=== PATIENT | male | born 2000 | race Caucasian/White ===

== ENCOUNTER 2024-04-02 20:46 | Emergency (ER) | payer OTHER, SELFPAY ==
[2024-04-02 20:48] VITALS: BP 125/72; BMI 25.6
[2024-04-03 00:29] LABS: Amphetamines Negative (Negative); Barbiturates Negative (Negative); Benzodiazepines Negative (Negative); Buprenorphine Negative (Negative); Cocaine Negative (Negative); Marijuana Negative (Negative); Methadone Negative (Negative); Methamphetamines Negative (Negative); Opiates Negative (Negative); Phencyclidine Negative (Negative); Tricyclic Antidepressants Negative (Negative)
[2024-04-03 00:33] LABS: ALT (SGPT) 25 U/L (0-50); AST (SGOT) 30 U/L (17-59); Albumin 4.6 g/dl (3.5-5.0); Alkaline Phosphatase 82 U/L (38-126); Blood Urea Nitrogen 22 mg/dl (9-20); Calcium 9.4 mg/dl (8.4-10.2); Carbon Dioxide 27 mmol/L (22-30); Chloride 105 mmol/L (98-107); Estimated Creatinine Clearance 121 ml/min; Glucose 85 mg/dl (70-99); Potassium 3.8 mmol/L (3.5-5.1); Sodium 142 mmol/L (135-145); Total Bilirubin 0.6 mg/dl (0.2-1.3); Total Protein 6.9 g/dl (6.3-8.2); eGFR > 60.00
[2024-04-03 00:43] LABS: Hematocrit 37.7 % (39.0-52.0); Hemoglobin 14.1 g/dL (13.0-18.0); Mean Corp Hgb Conc. 37.4 g/dL (33.0-37.0); Mean Corpuscular Hgb 32.3 pg (27.0-31.0); Mean Corpuscular Volume 86.3 fL (80.0-94.0); Mean Platelet Volume 10.3 fL (7.4-10.4); Platelet Count 174 10^3/uL (130-400); Red Blood Cell Count 4.37 10^6/uL (4.70-6.10); Red Cell Dist. Width 11.5 % (11.5-14.5); White Blood Cell Count 7.3 10^3/uL (4.8-10.8)
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
--- NOTE | 2024-04-03 07:30 | EDRN ---
Patient is calm and cooperative at present time. Patient with c/o sore throat. Updated on plan of care.
[2024-04-03 11:23] LABS: COVID-19 Antigen Negative (Negative)
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
[2024-04-03 11:54] VITALS: BP 123/66
--- NOTE | 2024-04-03 18:46 | EDRN ---
Discharge instructions reviewed with patient's parents. Verbalized understanding. Ambulated with steady gait to the lobby.
== END 2024-04-03 18:45 | disposition home or self-care (01) ==
LOC: EMR 20:46
PROVIDERS: Emergency Medicine; CONSULT PHYSICIAN Psychiatry & Neurology Psychiatry; EMERGENCY PHYSICIAN Student in an Organized Health Care Education/Training Program
DX: F91.1 Conduct disorder, childhood-onset type (principal); F70 Mild intellectual disabilities; F84.0 Autistic disorder
CPT/HCPCS: 99283; 80053; 80306; 85027; 87811

== ENCOUNTER 2024-06-30 12:17 | Emergency (ER) | payer OTHER, SELFPAY ==
[2024-06-30 12:20] VITALS: BP 135/86
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
[2024-06-30] MEDS: RISPERDAL 0.5 MG PO (16:26)
[2024-06-30 16:28] VITALS: BP 121/64
[2024-06-30 16:48] LABS: % Basophils 0.4 % (0-2); % Eosinophils 1.2 % (0-6); % Immature Granulocytes 1.3 % (0-0.5); % Lymphocytes 21.9 % (20.5-51.1); % Monocytes 8.5 % (1.7-9.3); % Neutrophils 66.7 % (42.2-75.2); Absolute Eosinophils 0.1 10^3/uL (0-0.7); Absolute Immature Granulocytes 0.1 10^3/uL (0-0.05); Absolute Lymphocytes 1.7 10^3/uL (1.2-3.4); Absolute Monocytes 0.7 10^3/uL (0.1-0.6); Absolute Neutrophils 5.1 10^3/uL (1.4-6.5); Hematocrit 39.4 % (39.0-52.0); Hemoglobin 14.5 g/dL (13.0-18.0); Mean Corp Hgb Conc. 36.8 g/dL (33.0-37.0); Mean Corpuscular Hgb 31.3 pg (27.0-31.0); Mean Corpuscular Volume 84.9 fL (80.0-94.0); Mean Platelet Volume 9.7 fL (7.4-10.4); Nucleated Red Blood Cells % 0 % (-); Platelet Count 161 10^3/uL (130-400); Red Blood Cell Count 4.64 10^6/uL (4.70-6.10); Red Cell Dist. Width 11.9 % (11.5-14.5); White Blood Cell Count 7.7 10^3/uL (4.8-10.8)
--- NOTE | 2024-06-30 16:52 | CM ---
Addendum entered by Saundra Zimmerman RN 06/30/24 18:05:
CM met with patient's parent's and terrazzo worker helper. CM advised parents that residential placement will take several weeks. CM encouraged parents to work with patient's chief service dispatcher to work on residential options. Mother left message for
patient's chief service dispatcher. painting trades worker is working on inpatient psychiatric treatment.
Original Note:
CM was consulted to discuss terminal manager placement for patient. CM spoke with patient's father and he stated that he wanted to speak with me. Father refused to discuss what he wanted to discuss with me.
[2024-06-30 17:24] LABS: ALT (SGPT) 159 U/L (0-50); AST (SGOT) 78 U/L (17-59); Albumin 4.7 g/dl (3.5-5.0); Alkaline Phosphatase 57 U/L (38-126); Blood Urea Nitrogen 19 mg/dl (9-20); Calcium 9.5 mg/dl (8.4-10.2); Carbon Dioxide 27 mmol/L (22-30); Chloride 105 mmol/L (98-107); Glucose 99 mg/dl (70-99); Potassium 3.8 mmol/L (3.5-5.1); Sodium 144 mmol/L (135-145); Total Bilirubin 0.8 mg/dl (0.2-1.3); Total Protein 7.4 g/dl (6.3-8.2); eGFR > 60.00
[2024-06-30 17:34] LABS: Alcohol None Detected
[2024-06-30 17:53] LABS: Amphetamines Negative (Negative); Barbiturates Negative (Negative); Benzodiazepines Negative (Negative); Buprenorphine Negative (Negative); Cocaine Negative (Negative); Marijuana Negative (Negative); Methadone Negative (Negative); Methamphetamines Negative (Negative); Opiates Negative (Negative); Phencyclidine Negative (Negative); Tricyclic Antidepressants Negative (Negative)
[2024-06-30 19:53] VITALS: BP 130/79
[2024-06-30] MEDS: GEODON 20 MG PO (22:47)
[2024-07-01 00:34] VITALS: BP 129/68
[2024-07-01 05:58] VITALS: BP 113/65
[2024-07-01] MEDS: GEODON 20 MG PO ×2 (08:41→20:13)
--- NOTE | 2024-07-01 09:59 | ED.CRISIS ---
ED Crisis Note
ED Crisis Note
Subjective:
23-year-old male with history of autism presents after aggressive behavior. Stable with no complaints. Father concerned about him getting his medications.
Objective:
Awake and alert. Sleeping initially but now awake. No respiratory distress
Assessment/Plan:
Continue current medications. Hold risperidone. Appreciate crisis input
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
[2024-07-01] MEDS: NON-FORMULARY ITEM 1 MG PO (12:15)
[2024-07-01 16:56] VITALS: BP 139/74
[2024-07-02] MEDS: NON-FORMULARY ITEM 1 MG PO (09:39)
[2024-07-02] MEDS: GEODON 20 MG PO ×2 (09:39→19:42)
--- NOTE | 2024-07-02 13:57 | W.PN.UPDATE ---
Update Note
Progress Note Update
Patient is doing reasonably well, today was being visited by his therapist. Denies any significant problems, appetite stable, denies insomnia. He has not been aggressive or agitated.
He is eating with the Geodon.
Problem is that so far he has not been accepted by any inpatient facility. Parents still feel they cannot handle him home due to his aggression.
I would continue current meds and Crisis is actively trying to find appropriate placement.
[2024-07-02 18:37] VITALS: BP 135/72
[2024-07-03 09:35] VITALS: BP 125/67
[2024-07-03] MEDS: GEODON 20 MG PO (09:45)
[2024-07-03] MEDS: NON-FORMULARY ITEM 1 MG PO (09:45)
== END 2024-07-03 13:04 ==
LOC: EMR 12:17
PROVIDERS: CONSULT PHYSICIAN Psychiatry & Neurology Psychiatry; EMERGENCY PHYSICIAN Emergency Medicine
DX: F84.0 Autistic disorder (principal); R45.6 Violent behavior
CPT/HCPCS: 99283; 80053; 80306; 82077; 85025; 93005

== ENCOUNTER 2024-10-13 06:46 | Emergency (ER) | payer OTHER, SELFPAY ==
[2024-10-13 06:52] VITALS: BP 140/80
--- NOTE | 2024-10-13 07:42 | EDRN ---
I asked Rusty if he had any thoughts about self harm-he denies this
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
[2024-10-13] MEDS: MOTRIN 400 MG PO (08:58)
[2024-10-13 09:24] VITALS: BP 142/82
[2024-10-13 09:44] LABS: % Basophils 0.4 % (0-2); % Eosinophils 1.1 % (0-6); % Immature Granulocytes 0.5 % (0-0.5); % Lymphocytes 6.7 % (20.5-51.1); % Monocytes 4.7 % (1.7-9.3); % Neutrophils 86.6 % (42.2-75.2); Absolute Eosinophils 0.1 10^3/uL (0-0.7); Absolute Immature Granulocytes 0.1 10^3/uL (0-0.05); Absolute Lymphocytes 0.7 10^3/uL (1.2-3.4); Absolute Monocytes 0.5 10^3/uL (0.1-0.6); Absolute Neutrophils 9.1 10^3/uL (1.4-6.5); Hematocrit 42.8 % (39.0-52.0); Hemoglobin 15.4 g/dL (13.0-18.0); Mean Corpuscular Hgb 30.4 pg (27.0-31.0); Mean Corpuscular Volume 84.4 fL (80.0-94.0); Mean Platelet Volume 9.6 fL (7.4-10.4); Nucleated Red Blood Cells % 0 % (-); Platelet Count 175 10^3/uL (130-400); Red Blood Cell Count 5.07 10^6/uL (4.70-6.10); Red Cell Dist. Width 11.8 % (11.5-14.5); White Blood Cell Count 10.5 10^3/uL (4.8-10.8)
[2024-10-13 10:02] LABS: Blood Urea Nitrogen 13 mg/dl (9-20); Calcium 9.6 mg/dl (8.4-10.2); Carbon Dioxide 25 mmol/L (22-30); Chloride 104 mmol/L (98-107); Glucose 132 mg/dl (70-99); Lithium 0.7 mmol/L (0.6-1.2); Potassium 4.1 mmol/L (3.5-5.1); Sodium 138 mmol/L (135-145); eGFR > 60.00
== END 2024-10-13 12:34 | disposition home or self-care (01) ==
LOC: EMR 06:46
PROVIDERS: Physician Assistant; EMERGENCY PHYSICIAN Emergency Medicine
DX: J02.9 Acute pharyngitis, unspecified (principal); F84.0 Autistic disorder
CPT/HCPCS: 99283; 80048; 80178; 85025; 87070; 87880

== ENCOUNTER 2025-01-26 15:03 | Emergency (ER) | payer OTHER, SELFPAY ==
[2025-01-26 15:24] VITALS: BP 134/86
--- NOTE | 2025-01-26 16:21 | ED.GENMED ---
History of Present Illness
General
Chief Complaint: Crisis Evaluation
Time Seen by Provider: 01/26/25 16:21
History of Present Illness
History of Present Illness:
TIME OF INITIAL EVALUATION
- 4:30 PM
REVIEW OF OLD RECORDS
- The patient has history of autism. The patient was seen here this past June and at that time ultimately was transferred to [place].
CHIEF COMPLAINT(S)
Admission to the emergency department via ambulance; the patient is unsure of the reason.
HISTORY OF PRESENT ILLNESS
The patient is a 24-year-old male who arrived at the emergency department transported by ambulance. The patient is unsure of who called the ambulance, stating, 'The ambulance showed up.' He denies current feelings of upset or fear and reports
feeling 'okay.' He does not recall the reason for being in the emergency department and does not report any discomfort or distress at the time of evaluation.
SOCIAL HISTORY
The patient denies any use of drugs or alcohol. He reports living with his parents.
PHYSICAL EXAM
- General: Overall appearance is consistent with autism
- HEENT: Moist oral mucosa
- Cardiovascular: No murmurs, normal heart rate, regular rhythm, No chest wall tenderness
- Pulmonary: No respiratory distress, breath sounds are clear and equal
- Abdomen: Soft with no peritoneal signs, no tenderness
- Neurologic: Excellent strength all extremities, no coordination deficits
- Psychiatric: The patient is occasionally rocking back and forth on the stretcher but does not appear to be in any significant distress, his insight and judgment are somewhat impaired
- Extremities: Nontender, no edema, moves all extremities equally
- Skin: No rash, no lesions
DIFFERENTIAL DIAGNOSIS
The Differential Diagnosis includes, in no particular order and is not limited to:
1. Anxiety or stress-related episode
2. Acute confusion or disorientation
3. Possible postictal state following seizure
4. Syncope or fainting episode
5. Metabolic disturbances (e.g., hypoglycemia)
6. Neurological event (e.g., transient ischemic attack)
7. Substance intoxication or withdrawal (self-reported denial)
8. Psychiatric disorder
9. Infection leading to altered mental status
10. Trauma or head injury (unknown history)
RADIOLOGY
- Indicated
EKG
- Not indicated
LABS
- Recent labs unremarkable therefore no labs ordered today
UPDATE
- At about 4:30 PM, I discussed case with crisis and they will evaluate him. I did review old records and the patient had an unremarkable CBC and chemistries this past September.
SUMMARY OF ENCOUNTER
The patient, a 24-year-old male, was brought to the emergency department following an incident at home where his behavior became aggressive. According to the accompanying libertarian, the patient has a history of behavioral disturbances beginning at age
22, with increasing episodes of aggression. The accompanying libertarian reported that the patient was previously treated with various psychiatric medications including lithium and risperidone, but continues to exhibit aggressive behavior. The current
medications include trifluoperazine and lithium. The patient�s aggressive tendencies have escalated, and the concern is that he may pose a risk to himself or others. Given the ongoing aggression and treatment-resistant behavior, consideration for
psychiatric inpatient admission was discussed.
ASSESSMENT
The patient exhibits aggressive and potentially harmful behavior that may be a result of underlying psychiatric conditions. A history of multiple changes in psychiatric medications suggests a complex mental health profile requiring specialized
inpatient care.
PLAN
- Consider psychiatric evaluation for potential inpatient admission to manage acute behavioral disturbance.
- Review current psychiatric medication regimen and evaluate efficacy.
- Involve social insurance adviser and mental health professionals for further assessment and planning.
MEDICATION RECONCILIATION
The patient is currently taking trifluoperazine and lithium. Previous medications included risperidone.
MEDICAL DECISION MAKING
-Complexity of Problems Addressed: Chronic conditions affecting care, including psychiatric disorder, and autism spectrum disorder. Differential Diagnosis includes anxiety or stress-related episode, acute confusion, possible postictal state
following seizure, syncope, metabolic disturbances, neurological event, substance intoxication or withdrawal, infection leading to altered mental status, trauma or head injury.
-Data:
Category 1: No specific lab tests ordered. Review of prior psychiatric history and medication adjustments.
Category 3: Discussion of management and consideration for inpatient psychiatric care due to ongoing aggression and complex behavioral issues.
-Risk: Consideration of Admission/Observation: Escalation of care including admission/observation was considered given the complexity and risk of the patients presenting complaint, exam findings, and underlying psychiatric condition. Ultimately, the
decision leans toward inpatient admission for comprehensive care.
DIAGNOSIS
1. 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
2. Autism spectrum disorder - ICD-10 F84.0
7 PM, had long discussion with father. Father adamant that the patient cannot safely be returned home.
I spoke to pharmacist as we do not have guanfacine 1 mg extended release. They are placing an order for him to get it each morning in case he is unable to be placed tonight at [facility] or another facility.
I have also ordered the usual medications that the patient is usually on. Father cell phone number is [phone]. Mother cell phone number is [phone].
Phy Exam
Physical Exam
Physical Exam:
See HPI
Course
Orders/Labs/Results
Orders:
Orders
01/26/25 Dinner
Regular
At Your Request: Full Participation
Does patient need a safe tray?: Yes
01/26/25 16:27
Crisis Consult Urgent
Reason for Consult: behavior
01/26/25 20:00
Trifluoperazine [Stelazine] 1 mg PO BID
Trifluoperazine [Stelazine] 5 mg PO BID
01/26/25 22:00
[place] Carbonate [Eskalith] 600 mg PO HS
01/27/25 08:00
Non-Formulary Item See Dose Instructions PO DAILY
Vital Signs
Initial and Last Documented VS:
Initial Vital Signs
Temp Pulse Resp BP Pulse Ox
36.7 C 102 18 134/86 98
01/26/25 15:24 01/26/25 15:24 01/26/25 15:24 01/26/25 15:24 01/26/25 15:24
Last Documented Vital Signs
Temp Pulse Resp BP Pulse Ox
36.7 C 102 18 134/86 98
01/26/25 15:24 01/26/25 15:24 01/26/25 15:24 01/26/25 15:24 01/26/25 16:25
*Pulse Oximetry
SaO2: 98
Oxygen Mode of Delivery: Room air
Patient hypoxic: no
*Critical Care Note
Total Time (30-74mins, 75-104mins- exclusive of procedures): Not Applicable
ED Attending Note
-
Portions of this chart may have been created with voice recognition software.� Occasional wrong word or��sound alike� substitutions may have occurred due to the inherent limitations of voice recognition software.
Discharge Plan
Departure
Patient Disposition: Psych Facility
Date of Disposition: 01/26/25
Time of Disposition: 19:23
Discharge Problem:
Behavioral change
Prescriptions:
No Action
risperidone 0.5 mg Tablet
2 mg PO HS
guanfacine 1 mg Tablet
1 mg PO DAILY
[place]
600 mg PO HS
Probiotic
1 tab PO DAILY
Vitamin B-12
1 tab PO DAILY
Vitamin D3
1 tab PO DAILY
metformin
1,000 mg PO DAILY
multivitamin
1 tab PO DAILY
Referrals:
UNKNOWN - PT NOT,INTERVIEWE [Family Provider]
Interventions
Interventions:
*Risk Screen - Suicide Last Done: 01/26/25 15:24
*General Assessment Last Done: 01/26/25 15:24
*Neglect/Abuse Screening Last Done: 01/26/25 15:24
*ED- Fall Risk Assessment Last Done: 01/26/25 15:24
*ED COVID-19 Vaccine History Last Done: 01/26/25 15:24
ED-Psychological Assessment Last Done: 01/26/25 15:24
Discharge Date and Time
Print Language: ROMANIAN
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
[2025-01-26] MEDS: STELAZINE 5 MG PO (19:44)
[2025-01-26] MEDS: ESKALITH 600 MG PO (19:44)
--- NOTE | 2025-01-26 20:03 | ED TECH ---
PATIENT OWN MED IN POD 1 MEDROOM. MUST GO W PATIENT WHEN TRANSPORT COMES
--- NOTE | 2025-01-26 20:34 | EDRN ---
Pt. much more calm and is cooperative w/ this RN, took his home meds. w/o issue, ate dinner, and allowed RN to collect urine and covid sample.
[2025-01-26 21:29] LABS: COVID-19 Antigen Negative (Negative)
== END 2025-01-26 23:10 ==
LOC: EMR 15:03
PROVIDERS: EMERGENCY PHYSICIAN Emergency Medicine
DX: F99 Mental disorder, not otherwise specified (principal); F91.8 Other conduct disorders; F84.0 Autistic disorder; Z79.899 Other long term (current) drug therapy
CPT/HCPCS: 99285; 80306; 87811